=== PATIENT | female | born 1990 | race Two or more races ===

== ENCOUNTER 2017-08-11 20:41 | Emergency (ER) | payer MEDICAID ==
[~2017-08-11] VITALS: Ht 153 cm; Wt 64.9 kg
[2017-08-11] MEDS ORDERED: NKM (20:59)
[2017-08-11] MEDS ORDERED: JUBLIA4 ML TP (21:31)
--- NOTE | 2017-08-11 21:33 | Emergency Room Report ---
History of Present Illness General Chief Complaint: General Complaint Source: Patient Present Illness HPI Patient presents with a rash to her feet for the last several weeks. She try [id number] athlete's foot medication without relief. Itching and scratching. No fever chills. No drainage. Nothing made it better. Scratching made it worse. No fever or chills. She is in school here from [place]. Allergies: Coded Allergies: No Known Allergies (Unverified , 08/11/17) Patient History Past Medical History: see triage record, old chart reviewed Past Surgical History: none Pertinent Family History: none Social History: Denies: smoking Now: No Immunizations: other Reviewed Nursing Documentation: PMH: Agreed; PSxH: Agreed Nursing Documentation-PMH Past Medical History: No Stated History Review of Systems Eye: Denies: eye pain, blurred vision ENT: Denies: ear pain, nose congestion, throat swelling Respiratory: Denies: cough, shortness of breath Cardiovascular: Denies: chest pain, palpitations Gastrointestinal: Denies: abdominal pain, diarrhea, nausea, vomiting Musculoskeletal: Denies: back pain, joint pain Skin: Reports: rash Neurological: Denies: headache, numbness Endocrine: Denies: increased thirst, increased urine Hematologic/Lymphatic: Denies: easy bruising All Other Systems: negative except mentioned in HPI Physical Exam Vital Signs Date Time Temp Pulse Resp B/P (MAP) Pulse Ox O2 Delivery O2 Flow Rate FiO2 08/11/17 20:55 98.3 67 16 119/73 98 Room Air 98.2 vital normal Sp02 EP Interpretation: reviewed, normal General Appearance: well appearing, no apparent distress, alert Head: normocephalic, atraumatic Eyes: bilateral eye PERRL, bilateral eye EOMI ENT: hearing grossly normal, normal pharynx Neck: full range of motion, supple, no meningismus Respiratory: chest non-tender, lungs clear, normal breath sounds Cardiovascular #1: regular rate, rhythm, no murmur Gastrointestinal: normal bowel sounds, non tender, no mass, no organomegaly, no bruit, non-distended Musculoskeletal: back normal, gait/station normal, normal range of motion, other - onychomycosis of toenails and dry scaly skins. Psychiatric: mood/affect normal Skin: warm/dry Medical Decision Making Diagnostic Impression: Primary Impression: Athlete's foot Qualified Codes: B35.3 - Tinea pedis ER Course Patient present with tinea pedis. No evidence of cellulitis. No evidence of necrotizing fasciitis. We'll discharge home. Last Vital Signs Date Time Temp Pulse Resp B/P (MAP) Pulse Ox O2 Delivery O2 Flow Rate FiO2 08/11/17 20:55 98.3 67 16 119/73 98 Room Air 98.2 Status: unchanged Disposition: HOME, SELF-CARE Scripts Efinaconazole (Jublia) 4 Ml Nyasia.w.appl 4 ML TP QID, #60 GM Prov: EVELIA TEJADA M.D. 08/11/17 Additional Instructions: Follow-up your doctor in one to 2 weeks for recheck. Return if symptom worsen. EVELIA TEJADA M.D. Aug 11, 2017 21:33
[2017-08-11 21:39] VITALS: BP 119/73
== END 2017-08-11 21:40 | disposition home or self-care (01) ==
LOC: EMR 21:10
DX: B35.3 Tinea pedis (principal)
CPT/HCPCS: 99283

== ENCOUNTER 2017-08-15 21:35 | Emergency (ER) | payer MEDICAID ==
[~2017-08-15] VITALS: Ht 152.4 cm; Wt 64.9 kg
[~2017-08-15 21:35] MED LIST: JUBLIA4 ML TP; NKM
[2017-08-15 21:53] VITALS: BP 116/79
[2017-08-15] MEDS ORDERED: ROBITUSSIN COU118 M1 PO (22:30)
--- NOTE | 2017-08-15 22:33 | Emergency Room Report ---
History of Present Illness General Chief Complaint: Upper Respiratory Illness Source: Patient Present Illness HPI Patient was asked with complaints of cough and congestion over the past 2 days Has a mild headache Patient also complains of sore throat Denies any chest pain or shortness of breath denies any fevers Denies any posterior neck pain or photophobia Denies any focal weakness denies any recent travel Denies any abdominal pain or vomiting Allergies: Coded Allergies: No Known Allergies (Unverified , 08/11/17) Patient History Past Medical History: see triage record Pertinent Family History: none Last Menstrual Period: "a month ago" Now: No : 2 Para: 2 Reviewed Nursing Documentation: PMH: Agreed; PSxH: Agreed Nursing Documentation-PMH Past Medical History: No Stated History Review of Systems All Other Systems: negative except mentioned in HPI Physical Exam Vital Signs Date Time Temp Pulse Resp B/P (MAP) Pulse Ox O2 Delivery O2 Flow Rate FiO2 08/15/17 21:40 99.2 82 18 116/79 98 Room Air 99.1 Sp02 EP Interpretation: reviewed, normal General Appearance: well appearing, no apparent distress Head: normocephalic, atraumatic Eyes: bilateral eye PERRL, bilateral eye EOMI ENT: hearing grossly normal, TMs + canals normal, uvula midline, pharyngeal erythema, other - Bilateral clear rhinorrhea Neck: full range of motion, supple, no meningismus, no bony tend Respiratory: lungs clear, normal breath sounds, no rhonchi, no respiratory distress, no retraction, no accessory muscle use Cardiovascular #1: normal peripheral pulses, regular rate, rhythm, no edema, no gallop, no JVD, no murmur Gastrointestinal: normal bowel sounds, non tender, soft, no mass, no organomegaly, non-distended, no guarding, no hernia, no pulsatile mass, no rebound Genitourinary: no CVA tenderness Musculoskeletal: normal inspection Neurologic: oriented x3, responsive, greenskeeper III-XII nml as tested, motor strength/ tone normal, sensory intact Psychiatric: mood/affect normal Skin: normal color, no rash, warm/dry, palpation normal Lymphatic: normal inspection, no adenopathy Medical Decision Making Diagnostic Impression: Primary Impression: Upper respiratory infection ER Course Patient's evaluation is consistent with upper respiratory infection Likely viral etiology Patient's lung sounds are clear Respirations are appropriate She also has some mild erythema in the pharyngeal region Consistent with viral URI And will have initial conservative outpatient trial Last Vital Signs Date Time Temp Pulse Resp B/P (MAP) Pulse Ox O2 Delivery O2 Flow Rate FiO2 08/15/17 21:53 99.1 82 18 116/79 98 Room Air 99.1 Status: unchanged Disposition: HOME, SELF-CARE Condition: Stable Scripts Guaifenesin/D-Methorphan Hb/Pe (ROBITUSSIN COUGH-COLD CF LIQ) 118 Ml Liquid 10 ML PO Q12HR for 5 Days, ML Prov: Azalea Fox DO 08/15/17 Departure Forms: Return to School Return to School On: Aug 17, 2017 School Release Restrictions: None Patient Instructions: Upper Respiratory Infection, Adult Additional Instructions: Patient is provided with the discharge instructions notified to follow up with primary doctor in the next 2-3 days otherwise return to the er with any worsening symptoms. Please note that this report is being documented using [employer] technology. This can lead to erroneous entry secondary to incorrect interpretation by the dictating instrument. Azalea Fox DO Aug 15, 2017 22:33
[2017-08-15 23:46] VITALS: BP 0/0
== END 2017-08-15 23:46 | disposition home or self-care (01) ==
LOC: EMR 22:20
DX: J06.9 Acute upper respiratory infection, unspecified (principal)
CPT/HCPCS: 99283

== ENCOUNTER 2017-10-07 19:06 | Emergency (ER) | payer MEDICAID ==
[~2017-10-07] VITALS: Ht 152.4 cm; Wt 69.9 kg
[~2017-10-07 19:06] MED LIST changes: +ROBITUSSIN COU118 M1 PO
--- NOTE | 2017-10-07 19:46 | Emergency Room Report ---
History of Present Illness General Chief Complaint: Abdominal Pain Source: Patient Present Illness HPI Patient presents with complaints of lower suprapubic discomfort Patient reports that her menstrual cycle was due on the However she is afraid now that has been 5 days late Denies any vomiting or diarrhea denies any fevers Denies any right lower quadrant or mid abdominal pain denies any dysuria or frequency Allergies: Coded Allergies: No Known Allergies (Unverified , 10/07/17) Patient History Past Medical History: see triage record Pertinent Family History: none Last Menstrual Period: 08/2017 Reviewed Nursing Documentation: PMH: Agreed; PSxH: Agreed Nursing Documentation-PM Past Medical History: No Stated History Review of Systems All Other Systems: negative except mentioned in HPI Physical Exam Vital Signs Date Time Temp Pulse Resp B/P (MAP) Pulse Ox O2 Delivery O2 Flow Rate FiO2 10/07/17 19:20 98.4 69 16 119/80 100 Room Air 98.4 Sp02 EP Interpretation: reviewed, normal General Appearance: well appearing, no apparent distress Head: normocephalic, atraumatic Eyes: bilateral eye PERRL, bilateral eye EOMI ENT: hearing grossly normal, normal pharynx, TMs + canals normal, uvula midline Neck: full range of motion, supple, no meningismus, no bony tend Respiratory: lungs clear, normal breath sounds, no rhonchi, no respiratory distress, no retraction, no accessory muscle use Cardiovascular #1: normal peripheral pulses, regular rate, rhythm, no edema, no gallop, no JVD, no murmur Gastrointestinal: normal bowel sounds, non tender, soft, no mass, no organomegaly, non-distended, no guarding, no hernia, no pulsatile mass, no rebound Genitourinary: no CVA tenderness Musculoskeletal: normal inspection Neurologic: oriented x3, responsive, business dean III-XII nml as tested, motor strength/ tone normal, sensory intact Psychiatric: mood/affect normal Skin: normal color, no rash, warm/dry, palpation normal Lymphatic: normal inspection, no adenopathy Medical Decision Making Diagnostic Impression: Primary Impression: Additional Impression: UTI in ER Course With the patient's history and examination, multiple differentials considered, including but not limited to , ectopic , ovarian torsion, gastritis, cholecystitis, pancreatitis, appendicitis Patient's urine sample is positive for Patient is approximately 4 days late on her menstrual cycle, therefore extremely early in the Patient does not have any pain at this time There was evidence of UTI as well I did not feel that ultrasound or beta Quant levels or warranted given the extremely early state Patient does not have any vaginal bleeding or spotting there is no signs of discomfort at this time And patient requires close follow-up Labs Test 10/07/17 19:46 Urine Color Yellow Urine Appearance Slightly cloudy Urine pH 6.5 (4.5-8.0) Urine Specific Sheldon 1.015 (1.005-1.035) Urine Protein Negative (NEGATIVE) Urine Glucose (UA) Negative (NEGATIVE) Urine Ketones Negative (NEGATIVE) Urine Occult Blood 1+ (NEGATIVE) Urine Nitrite Negative (NEGATIVE) Urine Bilirubin Negative (NEGATIVE) Urine Urobilinogen 4 MG/DL (0.0-1.0) Urine Leukocyte Esterase 3+ (NEGATIVE) Urine RBC 5-10 /HPF (0 - 2) Urine WBC 40-60 /HPF (0 - 2) Urine Squamous Epithelial Cells Moderate /LPF (NONE/OCC) Urine Bacteria Many /HPF (NONE) Urine HCG, Qualitative Positive (NEGATIVE) Last Vital Signs Date Time Temp Pulse Resp B/P (MAP) Pulse Ox O2 Delivery O2 Flow Rate FiO2 10/07/17 19:20 98.4 69 16 119/80 100 Room Air 98.4 Status: improved Disposition: HOME, SELF-CARE Condition: Stable Scripts Nitrofurantoin Monohyd/M-Cryst* (MACROBID 100 MG*) 100 Mg Capsule 100 MG ORAL EVERY 12 HOURS for 7 Days, CAP Prov: Azalea Fox DO 10/07/17 Additional Instructions: Patient is provided with the discharge instructions notified to follow up with primary doctor in the next 2-3 days otherwise return to the er with any worsening symptoms. Please note that this report is being documented using [employer] technology. This can lead to erroneous entry secondary to incorrect interpretation by the dictating instrument. Azalea Fox DO Oct 07, 2017 19:46
[2017-10-07 20:10] LABS: APPEARANCE,URINE SLIGHTLY CLOUDY; BILIRUBIN, URINE NEGATIVE (NEGATIVE); GLUCOSE, URINE (UA) NEGATIVE (NEGATIVE); KETONES,URINE NEGATIVE (NEGATIVE); LEUKOCYTE ESTERASE ,URINE 3+ (NEGATIVE); NITRITE,URINE NEGATIVE (NEGATIVE); PH,URINE 6.5 (4.5-8.0); PROTEIN,URINE NEGATIVE (NEGATIVE); UROBILINOGEN,URINE 4 MG/DL (0.0-1.0)
[2017-10-07 20:13] LABS: COLOR,URINE YELLOW
[2017-10-07] MEDS ORDERED: NITROFURANTOIN100 M2 ORAL (20:29)
[2017-10-07 20:35] VITALS: BP 114/65
[2017-10-07 20:38] VITALS: BP 119/80
== END 2017-10-07 20:38 | disposition home or self-care (01) ==
LOC: EMR 19:51
DX: O23.41 Unspecified infection of urinary tract in pregnancy, first trimester (principal); Z3A.01 Less than 8 weeks gestation of pregnancy
CPT/HCPCS: 81003; 81025; 87086; 99283

== ENCOUNTER 2017-10-28 00:08 | Emergency (ER) | payer MEDICAID ==
[~2017-10-28] VITALS: Ht 152.4 cm; Wt 70.8 kg
[~2017-10-28 00:08] MED LIST changes: +NITROFURANTOIN100 M2 ORAL
--- NOTE | 2017-10-28 00:38 | Emergency Room Report ---
History of Present Illness General Chief Complaint: Complications Source: Patient Present Illness HPI This is a 27-year-old female who is 3, para 2, approximately 6 weeks . She presents with vaginal bleeding. She was at [facility] in [facility] today. She had blood work and ultrasound. Ultrasound shows gestational sac without any activity. Her beta-hCG was 15,000. She had trichomonas in the urine. She is Rh+. She is confused as to what's going on. She said no one told her except for diagnosis of threatened miscarriage. She says she is passing clots. This is unchanged for the last couple days. Allergies: Coded Allergies: No Known Allergies (Unverified , 10/07/17) Patient History Past Medical History: see triage record, old chart reviewed Past Surgical History: other Pertinent Family History: none Social History: Denies: smoking Last Menstrual Period: August Now: No Immunizations: other Reviewed Nursing Documentation: PMH: Agreed; PSxH: Agreed Nursing Documentation-PMH Past Medical History: No Stated History Review of Systems Eye: Denies: eye pain, blurred vision ENT: Denies: ear pain, nose congestion, throat swelling Respiratory: Denies: cough, shortness of breath Cardiovascular: Denies: chest pain, palpitations Gastrointestinal: Denies: abdominal pain, diarrhea, nausea, vomiting Musculoskeletal: Denies: back pain, joint pain Skin: Denies: rash Neurological: Denies: headache, numbness Endocrine: Denies: increased thirst, increased urine Hematologic/Lymphatic: Denies: easy bruising All Other Systems: negative except mentioned in HPI Physical Exam Vital Signs Date Time Temp Pulse Resp B/P (MAP) Pulse Ox O2 Delivery O2 Flow Rate FiO2 10/28/17 00:17 98.2 67 16 100/74 98 Room Air 98.2 Sp02 EP Interpretation: reviewed, normal General Appearance: well appearing, no apparent distress, alert Head: normocephalic, atraumatic Eyes: bilateral eye PERRL, bilateral eye EOMI ENT: hearing grossly normal, normal pharynx Neck: full range of motion, supple, no meningismus Respiratory: chest non-tender, lungs clear, normal breath sounds Cardiovascular #1: regular rate, rhythm, no murmur Gastrointestinal: normal bowel sounds, non tender, no mass, no organomegaly, no bruit, non-distended Musculoskeletal: back normal, gait/station normal, normal range of motion Psychiatric: mood/affect normal Skin: warm/dry Medical Decision Making Diagnostic Impression: Primary Impression: Threatened Additional Impression: Trichomonal vaginitis ER Course Patient with a threatened miscarriage. Most likely inevitable miscarriage based on ultrasound finding an hCG level. I explained the diagnosis to the patient. We'll prescribe Flagyl orally instead of MetroGel for her Trichomonas. Last Vital Signs Date Time Temp Pulse Resp B/P (MAP) Pulse Ox O2 Delivery O2 Flow Rate FiO2 10/28/17 00:17 98.2 67 16 100/74 98 Room Air 98.2 Status: improved Disposition: HOME, SELF-CARE Condition: Stable Additional Instructions: Follow-up with your doctor in a week for recheck. Return if symptom worsen. EVELIA TEJADA M.D. Oct 28, 2017 00:38
[2017-10-28] MEDS ORDERED: metroNIDAZOLE 500mg tab ORAL ONE (00:45)
[2017-10-28 01:03] VITALS: BP 100/74
== END 2017-10-28 01:04 | disposition home or self-care (01) ==
LOC: EMR 00:37
DX: O20.0 Threatened abortion (principal); Z3A.01 Less than 8 weeks gestation of pregnancy; O98.311 Other infections with a predominantly sexual mode of transmission complicating pregnancy, first trimester; A59.01 Trichomonal vulvovaginitis
CPT/HCPCS: 99283